=== PATIENT | female | born 1990 | race American Indian/Alaskan Native ===

== ENCOUNTER 2019-03-11 11:11 | Outpatient (CLI) | payer BC, MEDICAID ==
[2019-03-11 11:36] VITALS: BP 118/61
[2019-03-11] MEDS ORDERED: LACTATED RINGERS 500 ML IV ONE (11:37)
[2019-03-11 13:10] LABS: Bacteria,Urine 1+ /HPF (Negative); Bilirubin,Urine NEG (Negative); Blood,Urine NEG (Negative); Color,Urine Yellow (Yellow); Mucus,Urine FEW /HPF; Protein,Urine <15 mg/dL mg/dL (Negative); Urobilinogen,Urine < 2.0 mg/dL (<2.0)
== END 2019-03-11 13:35 | disposition home or self-care (01) ==
LOC: TRG 11:11
PROVIDERS: ATTEND Obstetrics & Gynecology
DX: O47.02 False labor before 37 completed weeks of gestation, second trimester (principal); Z3A.26 26 weeks gestation of pregnancy
CPT/HCPCS: 81001

== ENCOUNTER 2019-03-31 12:11 | Outpatient (CLI) | payer MEDICAID ==
[2019-03-31] MEDS ORDERED: LACTATED RINGERS 1,000 ML IV ONE (15:09)
--- NOTE | 2019-03-31 15:59 | Ultrasound Report ---
PROCEDURE: US OB LIMITED TECHNIQUE: Real-time limited sonographic examination was performed for evaluation of the placenta fo r each fetus with image documentation (1 or more fetuses). HISTORY: Placental location and integrity COMPARISONS: None . FINDINGS: FETUS IUP: Single living intrauterine . Position: Cephalic . Placental position: Anterior, without previa . Sonographic appearance of the placenta is unremarkabl e. A few small nonspecific placental sonolucencies are present. Heart rate and rhythm: 150 BPM, Regular . IMPRESSION: Sonographic appearance of the placenta is unremarkable. This document is electronically signed by Marivel De La O MD., Mar 31 2019 03:57:41 PM ET
[2019-03-31 16:15] LABS: Bacteria,Urine 1+ /HPF (Negative); Bilirubin,Urine NEG (Negative); Blood,Urine NEG (Negative); Color,Urine Yellow (Yellow); Mucus,Urine 3+ /HPF; Protein,Urine <15 mg/dL mg/dL (Negative); Urobilinogen,Urine < 2.0 mg/dL (<2.0)
[2019-03-31] MEDS ORDERED: BRETHINE SUB-Q ONE (17:00)
[2019-03-31] MEDS ORDERED: ROCEPHIN/NS 1 GM/50 ML 1 GM/50 ML BAG IV SCH (17:00)
[2019-03-31] MEDS ORDERED: PROCARDIA*For Tocolysis only PO ONE (19:00)
[2019-03-31 19:17] VITALS: BP 121/68
--- NOTE | 2019-03-31 19:25 | Progress Note ---
Assessment and Plan A: at 29 weeks, 4 days gestation. contractions, resolved with IV hydration and SQ Brethine. FFN negative. Not in labor. P: Consulted with Dr. Strange regarding this patient and all of the above (history, exam, lab findings, pt. complaints). Dr. Strange states to discharge patient home with Rx for Procardia 10 mg po TID. Discussed this plan with patient and her significant other. Rx Procardia 10 mg, #90, 1 po TID, 0 RF called to [facility] and left on voicemail. Advised patient to rest and avoid intercourse and drink plenty of water. Signs and symptoms of labor discussed with patient. Advised patient to return right away if contractions return or if she has any other signs or symptoms. Advised pt. to perform daily movement counting. Advised patient to keep her scheduled appointment at [facility] in 3 days. Warning signs discussed with patient. Subjective - Subjective Date of service: 03/31/19 Principal diagnosis: at 29 4/7 weeks, contractions Interval history: 28 year old presents at 29 weeks, 4 days gestation complaing of intermittent contractions mostly at night. Patient denies leaking of fluid, vaginal bleeding, vaginal discharge, or urinary symptoms. She reports lower back pain; she denies flank pain, fever, chills, or malaise. Patient denies falls or abdominal trauma. Patient reports active movement. Patient states she receives care at [facility]. She states she has a follow up appointment there in 3 days. Patient denies any complications with the and states she is not taking any medications except vitamins. Patient reports she frequently has the pelvic cramping and lower back pain at night and it resolves spontaneously. Has been happening on and off for several weeks. Patient reports: movement normal, contractions, no new complaints, no loss of fluid, no vaginal bleeding Objective - Vital Signs Vital Signs: Vital Signs - 12hr 03/31/19 03/31/19 03/31/19 12:55 13:10 13:25 Pulse Rate 90 86 86 Blood Pressure 118/62 112/59 112/56 03/31/19 03/31/19 03/31/19 13:40 13:55 14:10 Pulse Rate 83 85 94 H Blood Pressure 118/56 101/52 104/52 03/31/19 03/31/19 03/31/19 14:26 14:40 14:57 Pulse Rate 75 78 82 Blood Pressure 126/57 113/57 105/54 03/31/19 03/31/19 03/31/19 15:58 18:11 19:16 Pulse Rate 74 96 H 97 H Blood Pressure 116/59 122/58 121/68 - Exam Narrative Exam: fibronectin negative. Irregular mild contractions which resolved with IV hydration and SQ Brethine. Cervix unchanged after several hours (closed, thick, high, posterior). Category 1 heart rate tracing. No leaking of water or vaginal bleeding seen. Negative CVAT bilaterally. Per lead sharepoint developer, fetus is cephalic and there is no sign of previa or abruption on US. Abdomen palpates soft. IV hydration and SQ Brethine totally resolved the cramping and back pain per patient report. IV Rocephin 1 gram was also given. Abdomen: Present: normal appearance, soft. Absent: distention, tenderness, guarding, rigidity Uterus: Present: normal, fundal height above umbilicus. Absent: tenderness FHR: category 1 Uterine Contraction Monitor Mode: External Cervical Dilatation: 0 (closed, thick, posterior, ballottable) Uterine Contraction Pattern: Irregular Uterine Contraction Intensity: Mild Extremities: normal - Labs Labs: Abnormal Labs 03/31/19 15:57 U Epithel Cells (Auto) 19.0 H Laboratory Results - last 24 hr 03/31/19 03/31/19 14:22 15:57 Urine Color Yellow Urine Turbidity Slightly-cloudy Urine pH 6.0 Ur Specific [place] 1.021 Urine Protein <15 mg/dl Urine Glucose (UA) Neg Urine Ketones Neg Urine Blood Neg Urine Nitrite Neg Urine Bilirubin Neg Urine Urobilinogen < 2.0 Ur Leukocyte Esterase Tr Urine WBC (Auto) 4.0 Urine RBC (Auto) 4.0 U Epithel Cells (Auto) 19.0 H Urine Bacteria (Auto) 1+ Urine Mucus 3+ Fibronectin Negative
== END 2019-03-31 19:39 | disposition home or self-care (01) ==
LOC: TRG 12:11
PROVIDERS: ATTEND Obstetrics & Gynecology
DX: O26.893 Other specified pregnancy related conditions, third trimester (principal); R11.0 Nausea; M54.9 Dorsalgia, unspecified; R60.9 Edema, unspecified; Z3A.29 29 weeks gestation of pregnancy
CPT/HCPCS: 36415; 59020; 59025; 76815; 81001; 82731; 96361; 96365; 96366; 96372; J0696; J3105; J7120; 96360

== ENCOUNTER 2019-04-01 10:46 | Observation (INO) | payer MEDICAID ==
[2019-04-01] MEDS ORDERED: LACTATED RINGERS 500 ML IV ONE (12:01)
[2019-04-01] MEDS ORDERED: LACTATED RINGERS 1,000 ML IV SCH ×2 (13:00→17:00)
[2019-04-01 13:34] LABS: Bacteria,Urine 1+ /HPF (Negative); Bilirubin,Urine NEG (Negative); Blood,Urine NEG (Negative); Color,Urine Yellow (Yellow); Mucus,Urine 1+ /HPF; Protein,Urine <15 mg/dL mg/dL (Negative); Urobilinogen,Urine < 2.0 mg/dL (<2.0)
[2019-04-01] MEDS ORDERED: BRETHINE SUB-Q PRN (15:43)
[2019-04-01] MEDS ORDERED: COLACE PO PRN (16:36)
[2019-04-01] MEDS ORDERED: MAGNESIUM SULFATE 4GM/100ML 4 GM/100 ML BAG IV ONE (16:41)
--- NOTE | 2019-04-01 16:50 | History and Physical Report ---
History of Present Illness Date of examination: 04/01/19 Date of admission: 04/01/19 Chief complaint: SIUP at 29 weeks and 5 days gestation with contractions. History of present illness: Patient is a 28 year old , EDC 06/12/19 at 29 weeks, 5 days gestation who presented to the triage complaining of having contractions and low back pain since yesterday. She denies leaking of fluid, vaginal bleeding, urinary symptoms, flank pain, fever, chills, or malaise. Patient denies falls or abdominal trauma. She reports active movement. She was seen here yesterday evening for the same problems and was treated with IV fluid, rocephin IV, procardia Q6 hrs. She was given a prescription to take with her. She says that she has been taking the procardia but it is not helping. In triage, her contractions are every 2 mins. Speculum exam: + greenish discharge, cervix closed/long. No fluid pooling. Patient receives care at [facility]. Her records are not available. She denies any complications with the . She had 2 previous vaginal deliveries. No history of labor. Past History Past Surgical History: no surgical history Family/Genetic History: none Social history: no significant social history - Obstetrical History Expected Date of Delivery: 06/12/19 Actual Gestation: 29 Week(s) 5 Day(s) : 4 Para: 2 Number of Living Children: 2 Medications and Allergies Allergies Allergy/AdvReac Type Severity Reaction Status Date / Time No Known Allergies Allergy Verified 10/01/15 10:40 Home Medications Medication Instructions Recorded Confirmed Last Taken Type Vit-Fe Fumar-FA [ 1 tab PO QDAY 10/01/15 10/07/15 10/03/15 History Vitamin] 1 tab Active Meds: Active Medications Acetaminophen (Tylenol) 650 mg PO Q4H PRN PRN Reason: Pain MILD(1-3)/Fever >100.5/MULLEN Betamethasone Acet/Betameth SodPhos (Celestone Soluspan) 12 mg IM Q24HR CRISTINA Stop: 04/02/19 10:01 Docusate Sodium (Colace) 100 mg PO Q12H PRN PRN Reason: Constipation Lactated Ringer's (Lactated Ringers) 1,000 mls @ 125 mls/hr IV DIRECT CRISTINA Last Admin: 04/01/19 16:06 Dose: 125 mls/hr Documented by: Lactated Ringer's (Lactated Ringers) 1,000 mls @ 125 mls/hr IV DIRECT CRISTINA Ampicillin Sodium (Ampicillin/Ns 1 Gm/50 Ml) 1 gm in 50 mls @ 100 mls/hr IV Q4HR CRISTINA; Protocol Magnesium Sulfate (Magnesium Sulfate 4gm/100ml) 4 gm in 100 mls @ 300 mls/hr IV ONCE ONE Stop: 04/01/19 17:00 Magnesium Sulfate (Magnesium Sulfate 40gm/1000ml) 40 gm in 1,000 mls @ 50 mls/hr IV DIRECT CRISTINA Metronidazole (Flagyl) 375 mg PO Q12HR RCISTINA; Protocol Multivitamins/Iron/Calcium ( Vitamin) 1 each PO QDAY CRISTINA - Vital Signs Vital signs: Vital Signs Temp Resp 98.2 F 18 04/01/19 11:28 04/01/19 11:28 Temp Pulse Resp BP Pulse Ox 98.2 F 63 18 114/66 99 04/01/19 11:28 04/01/19 16:10 04/01/19 11:28 04/01/19 15:53 04/01/19 16:10 - Physical Exam Cardiovascular: Normal S1, Normal S2 Lungs: Positive: Clear to auscultation Vulva: both: normal Adnexa: both: normal Deep Tendon Reflex Grade: Normal +2 - Obstetrical FHR: category 1 Uterine Contraction Monitor Mode: External Cervical Dilatation: 0 Cervical Effacement Percentage: 0 station: -3 Uterine Contraction Pattern: Regular Uterine Contraction Intensity: Strong/Firm Results Abnormal lab results 04/01/19 Range/Units 12:44 Urine WBC (Auto) 11.0 H (0.0-6.0) /HPF U Epithel Cells (Auto) 38.0 H (0-13.0) /HPF All other labs normal. Assessment and Plan - Patient Problems (1) 29 weeks gestation of Current Visit: Yes Status: Acute (2) labor Current Visit: Yes Status: Acute Plan to address problem: Admit to labor floor. IV hydration. Routine labs. Genital cx done. and toco monitoring. Celestone for FLM. Magnesium sulfate for tocolysis and neuroprotection. IV antibiotics for GBS prophylaxis. Sonogram for EFW, BRIDGETTE, presentation. Urine UDS. (3) Bacterial vaginosis Current Visit: Yes Status: Acute Plan to address problem: Genital Cx done. PO Flagyl ordered.
[2019-04-01] MEDS ORDERED: MAGNESIUM SULFATE 40GM/1000ML 40 GM/1,000 ML BAG IV SCH (17:00)
[2019-04-01] MEDS: CELESTONE SOLUSPAN IM SCH (17:16)
[2019-04-01 17:27] LABS: Hematocrit 33.8 % (30.3-42.9); Hemoglobin 11.3 gm/dl (10.1-14.3); Mean Corpuscular HGB Conc 33 % (30-34); Mean Corpuscular Volume 94 fl (79-97); Red Cell Distribution Width 14.3 % (13.2-15.2)
[2019-04-01 17:33] LABS: Platelet Count 170 K/mm3 (140-440)
--- NOTE | 2019-04-01 18:19 | Ultrasound Report ---
PROCEDURE: US OB BPP WO NON-STRESS HISTORY: estimated weight FINDINGS: Real-time ultrasound of the gravid uterus was performed. Biophysical profile is 8 of 8. The cardiac activity is present at 139 bpm. Amniotic fluid index was 8.6 cm which is within normal limits. IMPRESSION: Biophysical profile 8 of 8 This document is electronically signed by Jose Silverio MD., Apr 01 2019 06:17:25 PM ET
--- NOTE | 2019-04-01 18:21 | Ultrasound Report ---
PROCEDURE: US OB FOLLOW UP HISTORY: weight FINDINGS: Real-time ultrasound the pelvis was performed by transabdominal technique. There is a single live intrauterine gestation in cephalic lie. Biparietal diameter was 7.4 cm which corresponds to 29 weeks and 6 days. Head circumference was 27.3 cm corresponds to 29 weeks and 5 days. Abdominal circumference was 25.2 cm which corresponds to 29 weeks and 3 days. Femur length is 5.5 cm which corresponds to 29 weeks and 0 days. cardiac activity is present at 156 bpm. Amniotic fluid index was 8.6 cm which is within normal limits. Cervical length is 4.5 cm. Estimated weight was 1377 g. IMPRESSION: Single live intrauterine gestation at approximately 29 weeks and 4 days. Estimated date o f delivery is June 13, 2019. This document is electronically signed by Jose Silverio MD., Apr 01 2019 06:19:31 PM ET
[2019-04-01 18:47] LABS: Band Neutrophils # (Manual) 0.5 K/mm3; Basophils % (Manual) 0 % (0.0-1.8); Total Cells Counted 100
[2019-04-01 18:49] LABS: Giant Platelets Few; Ovalocytes Few; Platelet Estimate Consistent w Auto
[2019-04-01] MEDS: AMPICILLIN/NS 1 GM/50 ML 1 GM/50 ML BAG IV SCH (20:38)
[2019-04-01] MEDS: FLAGYL PO SCH (21:56)
[2019-04-02] MEDS: AMPICILLIN/NS 1 GM/50 ML 1 GM/50 ML BAG IV SCH ×5 (01:29→17:56)
[2019-04-02] MEDS: TYLENOL PO PRN ×2 (08:18→16:15)
--- NOTE | 2019-04-02 09:33 | Progress Note ---
Objective - Vital Signs Vital Signs: Vital Signs - 12hr 04/01/19 04/01/19 04/01/19 21:37 21:42 21:47 Pulse Rate 83 87 98 H Respiratory Rate Blood Pressure O2 Sat by Pulse 98 99 98 Oximetry 04/01/19 04/01/19 04/01/19 21:52 21:57 22:02 Pulse Rate 97 H 95 H 121 H Respiratory Rate Blood Pressure 118/64 O2 Sat by Pulse 98 98 98 Oximetry 04/01/19 04/01/19 04/01/19 22:05 22:08 22:13 Pulse Rate 113 H 109 H Respiratory 16 Rate Blood Pressure O2 Sat by Pulse 99 98 Oximetry 04/01/19 04/01/19 04/01/19 22:18 22:23 22:24 Pulse Rate 99 H 100 H 95 H Respiratory Rate Blood Pressure 107/57 O2 Sat by Pulse 98 97 Oximetry 04/01/19 04/01/19 04/01/19 22:28 22:33 22:38 Pulse Rate 91 H 85 98 H Respiratory Rate Blood Pressure O2 Sat by Pulse 97 97 97 Oximetry 04/01/19 04/01/19 04/01/19 22:43 22:48 22:52 Pulse Rate 93 H 92 H 110 H Respiratory Rate Blood Pressure 126/57 O2 Sat by Pulse 97 98 Oximetry 04/01/19 04/01/19 04/01/19 22:53 22:58 23:04 Pulse Rate 105 H 88 93 H Respiratory Rate Blood Pressure O2 Sat by Pulse 97 98 97 Oximetry 04/01/19 04/01/19 04/01/19 23:09 23:14 23:19 Pulse Rate 91 H 95 H 98 H Respiratory Rate Blood Pressure O2 Sat by Pulse 98 97 96 Oximetry 04/01/19 04/01/19 04/01/19 23:22 23:24 23:29 Pulse Rate 112 H 94 H 101 H Respiratory Rate Blood Pressure 137/61 O2 Sat by Pulse 98 97 Oximetry 04/01/19 04/01/19 04/01/19 23:33 23:39 23:44 Pulse Rate 100 H 97 H 97 H Respiratory Rate Blood Pressure O2 Sat by Pulse 97 96 97 Oximetry 04/01/19 04/01/19 04/01/19 23:49 23:52 23:54 Pulse Rate 96 H 112 H 96 H Respiratory Rate Blood Pressure 118/58 O2 Sat by Pulse 97 98 Oximetry 04/01/19 04/02/19 04/02/19 23:59 00:04 00:09 Pulse Rate 99 H 92 H 96 H Respiratory Rate Blood Pressure O2 Sat by Pulse 97 97 97 Oximetry 04/02/19 04/02/19 04/02/19 00:14 00:19 00:24 Pulse Rate 91 H 94 H 109 H Respiratory Rate Blood Pressure O2 Sat by Pulse 97 97 98 Oximetry 04/02/19 04/02/19 04/02/19 00:29 00:34 00:39 Pulse Rate 109 H 91 H 88 Respiratory Rate Blood Pressure O2 Sat by Pulse 97 98 98 Oximetry 04/02/19 04/02/19 04/02/19 00:44 00:49 00:52 Pulse Rate 92 H 90 92 H Respiratory Rate Blood Pressure 124/56 O2 Sat by Pulse 98 98 Oximetry 04/02/19 04/02/19 04/02/19 00:54 00:59 01:00 Pulse Rate 89 91 H Respiratory 18 Rate Blood Pressure O2 Sat by Pulse 98 97 Oximetry 04/02/19 04/02/19 04/02/19 01:04 01:09 01:14 Pulse Rate 92 H 96 H 87 Respiratory Rate Blood Pressure O2 Sat by Pulse 98 97 98 Oximetry 04/02/19 04/02/19 04/02/19 01:19 01:23 01:24 Pulse Rate 88 90 90 Respiratory Rate Blood Pressure 109/55 O2 Sat by Pulse 98 98 Oximetry 04/02/19 04/02/19 04/02/19 01:29 01:34 01:39 Pulse Rate 87 86 96 H Respiratory Rate Blood Pressure O2 Sat by Pulse 97 98 98 Oximetry 04/02/19 04/02/19 04/02/19 01:44 01:49 01:53 Pulse Rate 91 H 87 96 H Respiratory Rate Blood Pressure 112/57 O2 Sat by Pulse 98 99 Oximetry 04/02/19 04/02/19 04/02/19 01:54 01:59 02:04 Pulse Rate 89 89 86 Respiratory Rate Blood Pressure O2 Sat by Pulse 98 98 98 Oximetry 04/02/19 04/02/19 04/02/19 02:09 02:14 02:19 Pulse Rate 93 H 88 85 Respiratory Rate Blood Pressure O2 Sat by Pulse 98 98 98 Oximetry 04/02/19 04/02/1919 02:23 02:24 02:29 Pulse Rate 86 87 88 Respiratory Rate Blood Pressure 108/57 O2 Sat by Pulse 98 97 Oximetry 04/02/19 04/02/19 04/02/19 02:34 02:39 02:44 Pulse Rate 101 H 77 79 Respiratory Rate Blood Pressure O2 Sat by Pulse 98 98 98 Oximetry 04/02/19 04/02/19 04/02/19 02:49 02:52 02:54 Pulse Rate 84 77 82 Respiratory Rate Blood Pressure 101/54 O2 Sat by Pulse 97 97 Oximetry 04/02/19 04/02/19 04/02/19 02:59 03:04 03:09 Pulse Rate 85 76 82 Respiratory Rate Blood Pressure O2 Sat by Pulse 98 98 98 Oximetry 04/02/19 04/02/19 04/02/19 03:14 03:19 03:22 Pulse Rate 82 83 78 Respiratory Rate Blood Pressure 102/58 O2 Sat by Pulse 98 98 Oximetry 04/02/19 04/02/19 04/02/19 03:24 03:29 03:34 Pulse Rate 83 84 75 Respiratory Rate Blood Pressure O2 Sat by Pulse 98 97 98 Oximetry 04/02/19 04/02/19 04/02/19 03:39 03:44 03:49 Pulse Rate 87 93 H 85 Respiratory Rate Blood Pressure O2 Sat by Pulse 98 96 97 Oximetry 04/02/19 04/02/19 04/02/19 03:54 03:59 04:04 Pulse Rate 86 85 89 Respiratory Rate Blood Pressure 95/50 O2 Sat by Pulse 97 98 99 Oximetry 04/02/19 04/02/19 04/02/19 04:09 04:14 04:19 Pulse Rate 94 H 79 73 Respiratory Rate Blood Pressure O2 Sat by Pulse 99 99 98 Oximetry 04/02/19 04/02/19 04/02/19 04:22 04:24 04:29 Pulse Rate 77 86 79 Respiratory Rate Blood Pressure 96/51 O2 Sat by Pulse 98 99 Oximetry 04/02/19 04/02/19 04/02/19 04:34 04:39 04:44 Pulse Rate 76 79 84 Respiratory Rate Blood Pressure O2 Sat by Pulse 100 99 100 Oximetry 04/02/19 04/02/19 04/02/19 04:49 04:52 04:54 Pulse Rate 82 89 86 Respiratory Rate Blood Pressure 121/56 O2 Sat by Pulse 100 100 Oximetry 04/02/19 04/02/19 04/02/19 04:59 05:00 05:04 Pulse Rate 83 83 Respiratory 18 Rate Blood Pressure O2 Sat by Pulse 98 100 Oximetry 04/02/19 04/02/19 04/02/19 05:09 05:14 05:19 Pulse Rate 78 79 82 Respiratory Rate Blood Pressure O2 Sat by Pulse 99 100 100 Oximetry 04/02/19 04/02/19 04/02/19 05:22 05:24 05:29 Pulse Rate 79 82 83 Respiratory Rate Blood Pressure 103/52 O2 Sat by Pulse 99 99 Oximetry 04/02/19 04/02/19 04/02/19 05:34 05:39 05:44 Pulse Rate 88 85 85 Respiratory Rate Blood Pressure O2 Sat by Pulse 99 99 99 Oximetry 04/02/19 04/02/19 04/02/19 05:49 05:52 05:54 Pulse Rate 85 88 89 Respiratory Rate Blood Pressure 108/55 O2 Sat by Pulse 99 99 Oximetry 04/02/19 04/02/19 04/02/19 05:59 06:04 06:09 Pulse Rate 90 86 86 Respiratory Rate Blood Pressure O2 Sat by Pulse 98 97 97 Oximetry 04/02/19 04/02/19 04/02/19 06:14 06:16 06:19 Pulse Rate 96 H 85 92 H Respiratory Rate Blood Pressure O2 Sat by Pulse 98 91 98 Oximetry 04/02/19 04/02/19 04/02/19 06:23 06:24 06:29 Pulse Rate 100 H 94 H 94 H Respiratory Rate Blood Pressure 109/60 O2 Sat by Pulse 99 99 Oximetry 04/02/19 04/02/19 04/02/19 06:34 06:39 06:44 Pulse Rate 96 H 93 H 88 Respiratory Rate Blood Pressure O2 Sat by Pulse 100 100 100 Oximetry 04/02/19 04/02/19 04/02/19 06:49 06:52 06:54 Pulse Rate 95 H 92 H 93 H Respiratory Rate Blood Pressure 113/56 O2 Sat by Pulse 100 100 Oximetry 04/02/19 04/02/19 04/02/19 06:59 07:04 07:09 Pulse Rate 87 88 103 H Respiratory Rate Blood Pressure O2 Sat by Pulse 98 97 99 Oximetry 04/02/19 04/02/1919 07:12 07:14 07:19 Pulse Rate 55 L 89 101 H Respiratory Rate Blood Pressure O2 Sat by Pulse 93 98 100 Oximetry 04/02/19 04/02/19 04/02/19 07:22 07:24 07:29 Pulse Rate 104 H 85 87 Respiratory Rate Blood Pressure 106/62 O2 Sat by Pulse 99 99 Oximetry 04/02/19 04/02/19 04/02/19 07:34 07:39 07:44 Pulse Rate 92 H 84 86 Respiratory Rate Blood Pressure O2 Sat by Pulse 100 99 100 Oximetry 04/02/19 04/02/19 04/02/19 07:48 07:49 07:52 Pulse Rate 106 H 113 H 89 Respiratory Rate Blood Pressure 103/58 O2 Sat by Pulse 82 L 99 Oximetry 04/02/19 04/02/19 04/02/19 07:54 07:59 08:04 Pulse Rate 82 96 H 103 H Respiratory Rate Blood Pressure O2 Sat by Pulse 99 99 99 Oximetry 04/02/19 04/02/19 04/02/19 08:09 08:14 08:19 Pulse Rate 98 H 96 H 102 H Respiratory Rate Blood Pressure O2 Sat by Pulse 98 98 97 Oximetry 04/02/19 04/02/19 04/02/19 08:23 08:24 08:29 Pulse Rate 102 H 103 H 107 H Respiratory Rate Blood Pressure 124/59 O2 Sat by Pulse 99 99 Oximetry 04/02/19 04/02/19 04/02/19 08:34 08:39 08:44 Pulse Rate 103 H 110 H 104 H Respiratory Rate Blood Pressure O2 Sat by Pulse 100 99 98 Oximetry 04/02/19 04/02/19 04/02/19 08:49 08:52 08:54 Pulse Rate 99 H 101 H 105 H Respiratory Rate Blood Pressure 114/56 O2 Sat by Pulse 99 98 Oximetry 04/02/19 04/02/19 04/02/19 08:59 09:04 09:09 Pulse Rate 96 H 98 H 98 H Respiratory Rate Blood Pressure O2 Sat by Pulse 98 98 98 Oximetry 04/02/19 04/02/19 04/02/19 09:14 09:19 09:22 Pulse Rate 95 H 93 H 89 Respiratory Rate Blood Pressure 108/58 O2 Sat by Pulse 98 98 Oximetry 04/02/19 04/02/19 09:24 09:29 Pulse Rate 92 H 95 H Respiratory Rate Blood Pressure O2 Sat by Pulse 98 98 Oximetry - Labs Labs: Abnormal Labs 04/01/19 04/01/19 04/02/19 12:44 14:25 00:27 RBC 3.60 L Monocytes % (Manual) 9.0 H Magnesium 4.70 H Urine WBC (Auto) 11.0 H U Epithel Cells (Auto) 38.0 H 04/02/19 06:28 RBC Monocytes % (Manual) Magnesium 5.80 H Urine WBC (Auto) U Epithel Cells (Auto) Laboratory Results - last 24 hr 04/01/19 04/01/19 04/01/19 12:44 14:25 17:26 WBC 7.4 RBC 3.60 L Hgb 11.3 Hct 33.8 MCV 94 MCH 31 MCHC 33 RDW 14.3 Plt Count 170 Add Manual Diff Complete Total Counted 100 Seg Neuts % (Manual) 61.0 Band Neutrophils % 7.0 Lymphocytes % (Manual) 22.0 Reactive Lymphs % (Man) 0 Monocytes % (Manual) 9.0 H Eosinophils % (Manual) 1.0 Basophils % (Manual) 0 Metamyelocytes % 0 Myelocytes % 0 Promyelocytes % 0 Blast Cells % 0 Nucleated RBC % Not Reportable Seg Neutrophils # Man 4.5 Band Neutrophils # 0.5 Lymphocytes # (Manual) 1.6 Abs React Lymphs (Man) 0.0 Monocytes # (Manual) 0.7 Eosinophils # (Manual) 0.1 Basophils # (Manual) 0.0 Metamyelocytes # 0.0 Myelocytes # 0.0 Promyelocytes # 0.0 Blast Cells # 0.0 WBC Morphology Not Reportable Hypersegmented Neuts Not Reportable Hyposegmented Neuts Not Reportable Hypogranular Neuts Not Reportable Smudge Cells Not Reportable Toxic Granulation Not Reportable Toxic Vacuolation Not Reportable Dohle Bodies Not Reportable Pelger-Huet Anomaly Not Reportable Rosina Rods Not Reportable Platelet Estimate Consistent w auto Clumped Platelets Not Reportable Plt Clumps, EDTA Not Reportable Large Platelets Not Reportable Giant Platelets Few Platelet Satelliting Not Reportable Plt Morphology Comment Not Reportable RBC Morphology Not Reportable Dimorphic RBCs Not Reportable Polychromasia Not Reportable Hypochromasia Not Reportable Poikilocytosis Not Reportable Anisocytosis Not Reportable Microcytosis Not Reportable Macrocytosis Not Reportable Spherocytes Not Reportable Pappenheimer Bodies Not Reportable Sickle Cells Not Reportable Target Cells Not Reportable Tear Drop Cells Not Reportable Ovalocytes Few Helmet Cells Not Reportable Coley-Devol Bodies Not Reportable [place] Rings Not Reportable Vidya Cells Not Reportable Bite Cells Not Reportable Crenated Cell Not Reportable Elliptocytes Not Reportable Acanthocytes (Spur) Not Reportable Rouleaux Not Reportable Hemoglobin C Crystals Not Reportable Schistocytes Not Reportable Malaria parasites Not Reportable Cm Bodies Not Reportable Hem Pathologist Commnt No Magnesium Urine Color Yellow Urine Turbidity Slightly-cloudy Urine pH 7.0 Ur Specific [place] 1.018 Urine Protein <15 mg/dl Urine Glucose (UA) Neg Urine Ketones Neg Urine Blood Neg Urine Nitrite Neg Urine Bilirubin Neg Urine Urobilinogen < 2.0 Ur Leukocyte Esterase Lg Urine WBC (Auto) 11.0 H Urine RBC (Auto) 4.0 U Epithel Cells (Auto) 38.0 H Urine Bacteria (Auto) 1+ Urine Mucus 1+ Ur Yeast w Hyphae Few Blood Type O POSITIVE Antibody Screen Negative 04/02/19 04/02/19 00:27 06:28 WBC RBC Hgb Hct MCV MCH MCHC RDW Plt Count Add Manual Diff Total Counted Seg Neuts % (Manual) Band Neutrophils % Lymphocytes % (Manual) Reactive Lymphs % (Man) Monocytes % (Manual) Eosinophils % (Manual) Basophils % (Manual) Metamyelocytes % Myelocytes % Promyelocytes % Blast Cells % Nucleated RBC % Seg Neutrophils # Man Band Neutrophils # Lymphocytes # (Manual) Abs React Lymphs (Man) Monocytes # (Manual) Eosinophils # (Manual) Basophils # (Manual) Metamyelocytes # Myelocytes # Promyelocytes # Blast Cells # WBC Morphology Hypersegmented Neuts Hyposegmented Neuts Hypogranular Neuts Smudge Cells Toxic Granulation Toxic Vacuolation Dohle Bodies Pelger-Huet Anomaly Rosina Rods Platelet Estimate Clumped Platelets Plt Clumps, EDTA Large Platelets Giant Platelets Platelet Satelliting Plt Morphology Comment RBC Morphology Dimorphic RBCs Polychromasia Hypochromasia Poikilocytosis Anisocytosis Microcytosis Macrocytosis Spherocytes Pappenheimer Bodies Sickle Cells Target Cells Tear Drop Cells Ovalocytes Helmet Cells Coley-Devol Bodies [place] Rings [place] Cells Bite Cells Crenated Cell Elliptocytes Acanthocytes (Spur) Rouleaux Hemoglobin C Crystals Schistocytes Malaria parasites Cm Bodies Hem Pathologist Commnt Magnesium 4.70 H 5.80 H Urine Color Urine Turbidity Urine pH Ur Specific [place] Urine Protein Urine Glucose (UA) Urine Ketones Urine Blood Urine Nitrite Urine Bilirubin Urine Urobilinogen Ur Leukocyte Esterase Urine WBC (Auto) Urine RBC (Auto) U Epithel Cells (Auto) Urine Bacteria (Auto) Urine Mucus Ur Yeast w Hyphae Blood Type Antibody Screen
[2019-04-02] MEDS ORDERED: PRENATAL VITAMIN PO SCH (10:00)
[2019-04-02] MEDS: FLAGYL PO SCH (12:26)
[2019-04-02] MEDS ORDERED: CELESTONE SOLUSPAN IM ONE (17:51)
[2019-04-02] MEDS: CELESTONE SOLUSPAN IM SCH (17:58)
[2019-04-02 18:27] VITALS: BP 102/56
== END 2019-04-02 19:00 | disposition home or self-care (01) ==
LOC: TRG 10:46 → LD 18:25
PROVIDERS: ADMIT Obstetrics & Gynecology; ATTEND Obstetrics & Gynecology
DX: O23.593 Infection of other part of genital tract in pregnancy, third trimester (principal); O60.03 Preterm labor without delivery, third trimester; Z3A.29 29 weeks gestation of pregnancy
CPT/HCPCS: 36415; 59025; 76816; 76819; 81001; 83735; 85007; 85025; 86850; 86900; 86901; 87116; 87591; 96365; 96366; 96368; 96372; G0378; J0290; J0702; J3105; J3475; J7120

== ENCOUNTER 2019-05-01 17:59 | Outpatient (CLI) | payer MEDICAID ==
[2019-05-01] MEDS ORDERED: LACTATED RINGERS 1,000 ML IV ONE (19:42)
[2019-05-01 19:53] LABS: Hematocrit 31.5 % (30.3-42.9); Hemoglobin 10.8 gm/dl (10.1-14.3); Mean Corpuscular HGB Conc 34 % (30-34); Mean Corpuscular Volume 91 fl (79-97); Platelet Count 156 K/mm3 (140-440); Red Blood Count 3.47 M/mm3 (3.65-5.03); Red Cell Distribution Width 13.8 % (13.2-15.2)
[2019-05-01 20:24] LABS: Alanine Aminotransferase 9 units/L (7-56); Uric Acid 4.2 mg/dL (3.5-7.6)
[2019-05-01 20:25] LABS: Bacteria,Urine 1+ /HPF (Negative); Bilirubin,Urine NEG (Negative); Blood,Urine NEG (Negative); Calcium Oxalate Crystals,Urine FEW; Color,Urine Yellow (Yellow); Mucus,Urine 2+ /HPF; Protein,Urine <15 mg/dL mg/dL (Negative)
[2019-05-01 21:09] VITALS: BP 121/58
[2019-05-01] MEDS ORDERED: PERCOCET 5/325 PO ONE (21:32)
== END 2019-05-01 21:52 | disposition home or self-care (01) ==
LOC: TRG 17:59
PROVIDERS: ATTEND Obstetrics & Gynecology
DX: O26.893 Other specified pregnancy related conditions, third trimester (principal); R51 Headache; O47.03 False labor before 37 completed weeks of gestation, third trimester; Z3A.34 34 weeks gestation of pregnancy
CPT/HCPCS: 36415; 59025; 81001; 82565; 83615; 84450; 84460; 84550; 85027; 96360

== ENCOUNTER 2019-05-06 21:27 | Outpatient (CLI) | payer MEDICAID ==
[2019-05-06] MEDS ORDERED: LACTATED RINGERS 1,000 ML IV ONE ×2 (23:34→23:48)
[2019-05-06] MEDS ORDERED: STADOL IV ONE (23:48)
[2019-05-07 00:37] LABS: Bilirubin,Urine NEG (Negative); Blood,Urine NEG (Negative); Color,Urine Yellow (Yellow); Mucus,Urine 2+ /HPF; Protein,Urine <15 mg/dL mg/dL (Negative); Urobilinogen,Urine < 2.0 mg/dL (<2.0)
[2019-05-07 02:19] VITALS: BP 126/65
== END 2019-05-07 03:10 | disposition home or self-care (01) ==
LOC: TRG 21:27
PROVIDERS: ATTEND Obstetrics & Gynecology
DX: O62.9 Abnormality of forces of labor, unspecified (principal); O26.893 Other specified pregnancy related conditions, third trimester; H53.8 Other visual disturbances; R10.2 Pelvic and perineal pain; R11.0 Nausea; Z3A.34 34 weeks gestation of pregnancy
CPT/HCPCS: 59025; 81001; 96361; 96374; J0595; J7120; 96360

== ENCOUNTER 2019-05-07 13:27 | Emergency (ER) | payer MEDICAID ==
[2019-05-07] MEDS ORDERED: LACTATED RINGERS 500 ML IV ONE (13:51)
[2019-05-07 14:56] LABS: Bacteria,Urine 1+ /HPF (Negative); Bilirubin,Urine NEG (Negative); Blood,Urine NEG (Negative); Color,Urine Yellow (Yellow); Mucus,Urine 2+ /HPF; Protein,Urine <15 mg/dL mg/dL (Negative); Urobilinogen,Urine < 2.0 mg/dL (<2.0)
[2019-05-07 15:03] LABS: Amphetamine Screen,Urine PRESUMPTIVE NEGATIVE; Benzodiazepines Screen,Urine PRESUMPTIVE NEGATIVE; Cannabinoid Screen,Urine PRESUMPTIVE NEGATIVE; Cocaine Screen,Urine PRESUMPTIVE NEGATIVE; Methadone Screen,Urine PRESUMPTIVE NEGATIVE; Opiate Screen,Urine PRESUMPTIVE NEGATIVE
--- NOTE | 2019-05-07 18:26 | Event Note ---
ED Screening Note ED Screening Note: TO ER WITH CP P BEING EVALUATED BY L/D UA NORMAL This initial assessment/diagnostic orders/clinical plan/treatment(s) is/are subject to change based on patients health status, clinical progression and re- assessment by fellow clinical providers in the ED. Further treatment and workup at subsequent clinical providers discretion. Patient/guardian urged not to elope from the ED as their condition may be serious if not clinically assessed and managed. Initial orders include:
[2019-05-07 22:00] LABS: Basophils % (Auto) 0.4 % (0.0-1.8); Eosinophils % (Auto) 0.4 % (0.0-4.3); Hematocrit 32.8 % (30.3-42.9); Lymphocytes # (Auto) 1.5 K/mm3 (1.2-5.4); Lymphocytes % (Auto) 19.9 % (13.4-35.0); Mean Corpuscular HGB Conc 33 % (30-34); Mean Corpuscular Volume 91 fl (79-97); Monocytes % (Auto) 13.5 % (0.0-7.3); Platelet Count 174 K/mm3 (140-440); Red Blood Count 3.61 M/mm3 (3.65-5.03)
--- NOTE | 2019-05-07 22:07 | Emergency Department Report ---
ED Chest Pain HPI - General Chief Complaint: Chest Pain Time Seen by Provider: 05/07/19 18:25 Source: patient Mode of arrival: Ambulatory Limitations: No Limitations - History of Present Illness Initial Comments: 28-year-old female presents to the emergency department with complaint of some intermittent midsternal chest pain, shortness of breath, generalized weakness that has been going on since last night. The patient went to labor and delivery last night for some intermittent contractions she was having. She was given a dose of Stadol that she thinks she may have had a reaction to. Shortly after getting the Stadol the patient started having the above-mentioned symptoms, along with some dizziness. Patient says that she was sent home around 3 AM when she was improving. However she woke up this morning and the symptoms had returned so she came back in to be evaluated. She went to labor and delivery first and then was sent to the emergency department. She is currently 35 weeks . Her PROJECT COORDINATOR RN is Dr. Matt Angel. No recent travel. She denies any fever, back pain, nausea, vomiting, diaphoresis, lower extremity swelling. Severity scale (0 -10): 7 - Related Data Home Medications Medication Instructions Recorded Confirmed Last Taken Vit-Fe Fumar-FA [ 1 tab PO QDAY 10/01/15 04/02/19 03/31/19 Vitamin] NIFEdipine [Procardia] 1 tab PO DAILY 04/02/19 04/02/19 04/01/19 Allergies Allergy/AdvReac Type Severity Reaction Status Date / Time butorphanol [From Stadol] Allergy Shortness Verified 05/07/19 21:09 of Breath Heart Score - HEART Score History: Slightly suspicious EKG: Normal Age: < 45 Risk factors: No known risk factors Troponin: < normal limit HEART Score: 0 - Critical Actions Critical Actions: 0-3 pts:0.9-1.7%risk of adverse cardiac event.Candidate for discharge ED Review of Systems ROS: Stated complaint: Other details as noted in HPI Comment: All other systems reviewed and negative Constitutional: weakness. denies: chills, fever Eyes: denies: eye pain, vision change ENT: denies: ear pain, throat pain Respiratory: shortness of breath. denies: cough Cardiovascular: chest pain. denies: palpitations Gastrointestinal: abdominal pain. denies: vomiting Genitourinary: denies: dysuria, discharge Musculoskeletal: denies: back pain, arthralgia Skin: denies: rash, lesions Neurological: other (dizzy). denies: headache ED Past Medical Hx - Past Medical History Hx Hypertension: No Hx Congestive Heart Failure: No Hx Diabetes: No Hx Deep Vein Thrombosis: No Hx Renal Disease: No Hx Sickle Cell Disease: No Hx Seizures: No Hx Asthma: No Hx COPD: No Hx HIV: No - Social History Smoking Status: Never Smoker - Medications Home Medications: Home Medications Medication Instructions Recorded Confirmed Last Taken Type Vit-Fe Fumar-FA [ 1 tab PO QDAY 10/01/15 04/02/19 03/31/19 History Vitamin] NIFEdipine [Procardia] 1 tab PO DAILY 04/02/19 04/02/19 04/01/19 History ED Physical Exam - General Limitations: No Limitations - Other Other exam information: GENERAL: The patient is well-developed well-nourished. HENT: Normocephalic. Atraumatic. Patient has moist mucous membranes. EYES: Extraocular motions are intact. Pupils equal reactive to light bilaterally. NECK: Supple. Trachea is midline. CHEST/LUNGS: Clear to auscultation. There is no respiratory distress noted. HEART/CARDIOVASCULAR: Regular. There is no tachycardia. There is no murmur. ABDOMEN: Abdomen is soft, nontender. Patient has normal bowel sounds. Gravid uterus is palpable in the upper abdomen. SKIN: Skin is warm and dry. NEURO: The patient is awake, alert, and oriented. The patient is cooperative. The patient has no focal neurologic deficits. The patient has normal speech. MUSCULOSKELETAL: There is no tenderness or deformity. There is no evidence of acute injury. ED Course Vital Signs 05/07/19 05/07/19 05/07/19 14:16 17:12 17:13 Temperature 98.8 F Pulse Rate 63 20 L 70 Respiratory 20 Rate Blood Pressure 116/62 115/64 Blood Pressure 115/64 [Left] O2 Sat by Pulse Oximetry 05/07/19 05/07/19 05/07/19 17:52 17:54 17:57 Temperature Pulse Rate 62 63 64 Respiratory Rate Blood Pressure 146/73 Blood Pressure [Left] O2 Sat by Pulse 100 100 Oximetry 05/07/19 05/07/19 05/07/19 18:02 20:31 20:45 Temperature Pulse Rate 64 82 82 Respiratory 20 20 Rate Blood Pressure 111/67 111/67 Blood Pressure [Left] O2 Sat by Pulse 100 99 100 Oximetry 05/07/19 05/07/19 05/07/19 21:45 22:00 22:15 Temperature Pulse Rate 76 71 78 Respiratory 20 18 22 Rate Blood Pressure 111/67 110/64 110/64 Blood Pressure [Left] O2 Sat by Pulse 100 100 100 Oximetry 05/07/19 05/07/19 05/07/19 22:31 22:45 23:01 Temperature Pulse Rate 84 85 76 Respiratory 24 16 23 Rate Blood Pressure 110/64 110/64 110/64 Blood Pressure [Left] O2 Sat by Pulse 100 100 100 Oximetry - Reevaluation(s) Reevaluation #1: 05/08/19 00:58 Wells' Criteria for Pulmonary Embolism RESULT SUMMARY: 0.0 points Low risk group: 1.3% chance of PE in an ED population. Another study assigned scores ? 4 as PE Unlikely and had a 3% incidence of PE. INPUTS: Clinical signs and symptoms of DVT > 0 = No PE is #1 diagnosis OR equally likely > 0 = No Heart rate > 100 > 0 = No Immobilization at least 3 days OR surgery in the previous 4 weeks > 0 = No Previous, objectively diagnosed PE or DVT > 0 = No Hemoptysis > 0 = No Malignancy w/ treatment within 6 months or palliative > 0 = No PERC Rule for Pulmonary Embolism RESULT SUMMARY: 0 criteria No need for further workup, as <2% chance of PE. If no criteria are positive and clinicians pre-test probability is <15%, PERC Rule criteria are satisfied. INPUTS: Age ?50 > 0 = No HR ?100 > 0 = No Brinda? on room air > 0 = No Unilateral leg swelling > 0 = No Hemoptysis > 0 = No Recent surgery or trauma > 0 = No Prior PE or DVT > 0 = No Hormone use > 0 = No GABRIEL score - Gabriel Score Age > 65: (0) No Aspirin use within the Past 7 Days: (0) No 3 or more CAD Risk Factors: (0) No 2 or more Angina events in past 24 hrs: (1) Yes (If pain is angina) Known CAD with more than 50% Stenosis: (0) No Elevated Cardiac Markers: (0) No ST Deviation Greater than 0.5mm: (0) No GABRIEL Score: 1 ED Medical Decision Making - Lab Data Result diagrams: 05/07/19 21:45 05/07/19 21:45 - EKG Data -: EKG Interpreted by Me EKG shows normal: sinus rhythm, axis, intervals, QRS complexes, ST-T waves Rate: normal - EKG Data When compared to previous EKG there are: previous EKG unavailable Interpretation: normal EKG - Radiology Data Radiology results: image reviewed interpreted by me: Chest x-ray does not show any acute process. There are no pleural effusions, obvious pneumonia and there is no pneumothorax. - Medical Decision Making This patient presents to the emergency department with some intermittent chest pain and shortness of breath that started after she took Stadol last night at labor and delivery for treatment of some contractions. She was first cleared by her PROJECT COORDINATOR RN, Dr. Angel, over at labor and delivery before coming to the emergency department. Her EKG is normal without ST elevation PA, ischemia or dysrhythmia. We discussed risks versus benefit of having a chest x-ray done and she agreed to do so. The abdomen was shielded. Chest x-ray does not show any pleural effusions, pneumonia, pneumothorax, focal consolidation, or any other acute process. Patient's labs are unremarkable including a negative troponin. She is very low on the Heart score criteria, GABRIEL score, Wells criteria and she is perc negative. She was reevaluated multiple times for multiple hours and says that she is feeling improved. Her vital signs were stable throughout her ED course including being afebrile, no tachycardia and no hypoxia. Patient does not appear in any respiratory or acute distress. For all these reasons, the patient appears safe for discharge home at this time. She will return to the ER with any worsening of her symptoms or any acute distress. - Differential Diagnosis costochondritis, GERD, PA, pneumonia Critical Care Time: No Critical care attestation.: If time is entered above; I have spent that time in minutes in the direct care of this critically ill patient, excluding procedure time. ED Disposition Clinical Impression: Intermittent chest pain Qualifiers: Weeks of gestation: 35 weeks Qualified Code(s): Z3A.35 - 35 weeks gestation of Disposition: - TO HOME OR SELFCARE Is pt being admited?: No Condition: Stable Instructions: Chest Pain (ED) Additional Instructions: Please follow-up with your PROJECT COORDINATOR RN within 1 week and follow any instructions were given by your PROJECT COORDINATOR RN while you were in labor and delivery. Return to the emergency department with any return of your chest pain, worsening of your symptoms, or with any acute distress. Referrals: MATT ANGEL MD [Primary Care Provider] - 7 Days Forms: [facility] Discharge Summary Time of Disposition: 22:56 Print Language: ZAMBIAN
[2019-05-07 22:22] LABS: BUN/Creatinine Ratio 13; Blood Urea Nitrogen 8 mg/dL (7-17); Calcium 8.8 mg/dL (8.4-10.2); Hemolysis Index 41
--- NOTE | 2019-05-07 22:42 | XRay Report ---
PROCEDURE: XR CHEST 1V AP TECHNIQUE: Chest radiograph single view. HISTORY: Chest pain COMPARISONS: None . FINDINGS: Heart: Normal. Mediastinum/Vessels: Normal. Lungs/Pleural space: No infiltrate, effusion, or pneumothorax. Bony thorax: No acute osseous abnormality. Life support devices: None. IMPRESSION: No radiographic evidence of acute cardiopulmonary abnormality. This document is electronically signed by Marivel De La O MD., May 07 2019 10:40:38 PM ET
[2019-05-07 23:11] VITALS: BP 110/64
== END 2019-05-07 23:17 | disposition home or self-care (01) ==
LOC: ED 13:27 → TRG 13:27 → EDSTATUS 18:12 → ED 23:17
DX: O26.893 Other specified pregnancy related conditions, third trimester (principal); R07.89 Other chest pain; Z3A.35 35 weeks gestation of pregnancy; Z88.8 Allergy status to other drugs, medicaments and biological substances; Z79.899 Other long term (current) drug therapy
CPT/HCPCS: 36415; 59025; 71045; 80048; 80307; 81001; 84443; 84484; 85025; 93005; 93010; 96360; 96361; 96374; 99283; J0595; J7120

== ENCOUNTER 2019-05-20 21:50 | Outpatient (CLI) | payer MEDICAID ==
[2019-05-21 00:37] VITALS: BP 139/62
== END 2019-05-21 00:50 | disposition home or self-care (01) ==
LOC: TRG 21:50
PROVIDERS: ATTEND Obstetrics & Gynecology
DX: O62.8 Other abnormalities of forces of labor (principal); O13.3 Gestational [pregnancy-induced] hypertension without significant proteinuria, third trimester; Z3A.38 38 weeks gestation of pregnancy
CPT/HCPCS: 59025

== ENCOUNTER 2019-05-21 22:33 | Outpatient (CLI) | payer MEDICAID ==
[2019-05-22 00:09] VITALS: BP 116/65
== END 2019-05-22 01:00 | disposition home or self-care (01) ==
LOC: TRG 22:33
PROVIDERS: ATTEND Obstetrics & Gynecology
DX: O62.8 Other abnormalities of forces of labor (principal); O26.853 Spotting complicating pregnancy, third trimester; Z3A.37 37 weeks gestation of pregnancy
CPT/HCPCS: 59025

== ENCOUNTER 2019-05-29 17:50 | Inpatient (IN) | payer MEDICAID ==
[2019-05-29] MEDS ORDERED: MINERAL OIL PO PRN (18:53)
[2019-05-29] MEDS ORDERED: ZOFRAN IV PRN (18:53)
[2019-05-29] MEDS ORDERED: SUBLIMAZE IV PRN (18:53)
[2019-05-29] MEDS ORDERED: XYLOCAINE 2% INFILTRATI ONE (18:53)
[2019-05-29] MEDS ORDERED: BRETHINE SUB-Q PRN (18:53)
[2019-05-29] MEDS ORDERED: BRETHINE IVP PRN (18:53)
[2019-05-29] MEDS ORDERED: PITOCin/NS 30 UNIT/500ML 30 UNITS/500 ML BAG IV SCH ×2 (19:00)
[2019-05-29] MEDS ORDERED: PITOCin/NS 20 UNIT/1000ML DRIP 20 UNITS/1,000 ML BAG IV SCH (19:00)
[2019-05-29] MEDS ORDERED: LACTATED RINGERS 1,000 ML IV SCH (19:00)
--- NOTE | 2019-05-29 19:02 | History and Physical Report ---
History of Present Illness Date of examination: 05/29/19 Date of admission: 05/29/19 17:50 Chief complaint: SROM clear fluid @ 1300 History of present illness: Pt is a 28yo BF EDC 06/12/19; EGA 38 0/7 weeks presents to L&D complaining of SROM clear fluid @ 1300 followed by irregular contractions. She received care at [facility] since 7 weeks and course has been unremarkable. records are available and GBS is negative. Past History Past Medical History: no pertinent history Past Surgical History: no surgical history Family/Genetic History: diabetes, hypertension Social history: no significant social history, single - Obstetrical History Expected Date of Delivery: 06/12/19 Actual Gestation: 38 Week(s) 1 Day(s) : 4 Medications and Allergies Allergies Allergy/AdvReac Type Severity Reaction Status Date / Time butorphanol [From Stadol] Allergy Shortness Verified 05/07/19 21:09 of Breath Home Medications Medication Instructions Recorded Confirmed Last Taken Type Vit-Fe Fumar-FA [ 1 tab PO QDAY 10/01/15 04/02/19 03/31/19 History Vitamin] NIFEdipine [Procardia] 1 tab PO DAILY 04/02/19 04/02/19 04/01/19 History Active Meds: Active Medications Ephedrine Sulfate (Ephedrine Sulfate) 10 mg IV Q2M PRN PRN Reason: Hypotension Fentanyl (Sublimaze) 100 mcg IV Q2H PRN PRN Reason: Labor Pain Oxytocin/Sodium Chloride (Pitocin/Ns 20 Unit/1000ml Drip) 20 units in 1,000 mls @ 125 mls/hr IV DIRECT CRISTINA Oxytocin/Sodium Chloride (Pitocin/Ns 30 Unit/500ml) 30 units in 500 mls @ 1 mls/hr IV TITR CRISTINA; Protocol Oxytocin/Sodium Chloride (Pitocin/Ns 30 Unit/500ml) 30 units in 500 mls @ 4 mls/hr IV TITR CRISTINA; Protocol Lactated Ringer's (Lactated Ringers) 1,000 mls @ 125 mls/hr IV DIRECT CRISTINA Lidocaine (Xylocaine 2%) 20 ml INFILTRATI ONCE ONE Stop: 05/29/19 18:54 Mineral Oil (Mineral Oil) 30 ml PO QHS PRN PRN Reason: Constipation Ondansetron HCl (Zofran) 4 mg IV Q8H PRN PRN Reason: Nausea And Vomiting Terbutaline Sulfate (Brethine) 0.25 mg SUB-Q ONCE PRN PRN Reason: Hyperstimulation/Hypertonicity Terbutaline Sulfate (Brethine) 0.25 mg IVP ONCE PRN PRN Reason: Hyperstimulation/Hypertonicity Review of Systems All systems: negative - Vital Signs Vital signs: Vital Signs Pulse BP 104 H 130/69 05/29/19 17:59 05/29/19 17:59 Temp Pulse Resp BP Pulse Ox 104 H 130/69 05/29/19 17:59 05/29/19 17:59 - Physical Exam Breasts: Positive: deferred Cardiovascular: Regular rate Lungs: Positive: Clear to auscultation Abdomen: Positive: normal appearance Genitourinary (Female): Positive: normal external genitalia Vagina: Positive: normal moisture Uterus: Positive: enlarged Extremities: Positive: normal - Obstetrical FHR: category 1 Uterine Contraction Monitor Mode: External Cervical Dilatation: 3.5 (per nurse) Cervical Effacement Percentage: 50 (per nurse) station: -4 Uterine Contraction Pattern: Irregular Uterine Tone Measurement Phase: Contraction Uterine Contraction Intensity: Mild Results Result Diagrams: 05/29/19 18:54 All other labs normal. Assessment and Plan - Patient Problems (1) 38 weeks gestation of Onset Date: 05/29/19 Current Visit: Yes Status: Acute Plan to address problem: A: IUP @ 38 0/7 weeks PPROM P: Admit to L&D for expectant vaginal delivery (2) premature rupture of membranes (PPROM) with onset of labor within 24 hours of rupture in third trimester, antepartum Onset Date: 05/29/19 Current Visit: Yes Status: Acute
[2019-05-29 19:18] LABS: Hematocrit 31.7 % (30.3-42.9); Hemoglobin 10.8 gm/dl (10.1-14.3); Mean Corpuscular HGB Conc 34 % (30-34); Mean Corpuscular Volume 90 fl (79-97); Platelet Count 146 K/mm3 (140-440); Red Blood Count 3.53 M/mm3 (3.65-5.03); Red Cell Distribution Width 14.8 % (13.2-15.2)
[2019-05-29] MEDS ORDERED: NARCAN 2 MG/2 ML IV PRN (22:59)
[2019-05-29] MEDS ORDERED: fentaNYL-BUPIV 2 MCG/ML-0.125% 200 MCG/100 ML BAG EPIDURAL SCH (23:00)
--- NOTE | 2019-05-29 23:01 | Anesthesia Consultation ---
Anesthesia Consult and Med Hx Date of service: 05/29/19 - Airway Anesthetic Teeth Evaluation: Good ROM Head & Neck: Adequate Mental/Hyoid Distance: Adequate Mallampati Class: Class II Intubation Access Assessment: Probably Good - Pulmonary Exam CTA: Yes - Cardiac Exam Cardiac Exam: RRR - Pre-Operative Health Status ASA Pre-Surgery Classification: ASA2 Proposed Anesthetic Plan: Epidural - Pulmonary Hx Smoking: No Hx Asthma: No Hx Respiratory Symptoms: No SOB: No COPD: No Home Oxygen Therapy: No Hx Pneumonia: No Hx Sleep Apnea: No - Cardiovascular System Hx Hypertension: No Hx Coronary Artery Disease: No Hx Heart Attack/AMI: No Hx Angina: No Hx Percutaneous Transluminal Coronary Angioplasty (PTCA): No Hx Cardia Arrhythmia: No Hx Pacemaker: No Hx Internal Defibrillator: No Hx Valvular Heart Disease: No Hx Heart Murmur: No - Central Nervous System Hx Neuromuscular Disorder: No Hx Seizures: No CVA: No Hx Back Pain: Yes Hx Psychiatric Problems: No - Gastrointestinal Hx Ulcer: No Hx Gastroesophageal Reflux Disease: Yes - Endocrine Hx Renal Disease: No Hx End Stage Renal Disease: No Hx Cirrhosis: No Hx Liver Disease: No Hx Insulin Dependent Diabetes: No Hx Non-Insulin Dependent Diabetes: No Hx Thyroid Disease: No Hx Hypothyroidism: No Hx Hyperthyroidism: No - Hematic Hx Anemia: No Hx Sickle Cell Disease: No - Other Systems Hx Alcohol Use: Yes Hx Substance Use: No Hx Cancer: No Hx Obesity: No
[2019-05-30] MEDS ORDERED: DULCOLAX PR PRN (03:51)
[2019-05-30] MEDS ORDERED: LANSINOH TP PRN (03:51)
[2019-05-30] MEDS ORDERED: TUCKS PAD TP PRN (03:51)
[2019-05-30] MEDS ORDERED: PHENERGAN PO PRN (03:51)
[2019-05-30] MEDS ORDERED: PHENERGAN PR PRN (03:51)
[2019-05-30] MEDS ORDERED: BENADRYL PO PRN (03:51)
[2019-05-30] MEDS ORDERED: MILK OF MAGNESIA PO PRN (03:51)
[2019-05-30] MEDS ORDERED: ZOFRAN IV PRN (03:51)
[2019-05-30] MEDS ORDERED: TYLENOL PO PRN (03:51)
[2019-05-30] MEDS ORDERED: SODIUM CHLORIDE FLUSH SYRINGE 10 ML IV NR (04:00)
[2019-05-30] MEDS ORDERED: PITOCin/NS 20 UNIT/1000ML DRIP 20 UNITS/1,000 ML BAG IV SCH (04:00)
--- NOTE | 2019-05-30 04:00 | Procedure Note ---
OB Delivery Note - Delivery Date of Delivery: 05/30/19 Surgeon: EUGENE DOBBINS Estimated blood loss: 100cc - Vaginal Delivery presentation: vertex Delivery position: OP Intrapartum events: PROM->1hr before delivery, mult.variable deceleratio Delivery induction: none Delivery augmentation: pitocin Delivery monitor: external FHT, external uterine Route of delivery: vacuum extraction (1 pull, no pop-offs) Indicators for instrumentation: nonreassuring FHR tracing Delivery placenta: spontaneous Delivery cord: 3 umbilical vessels Episiotomy: none Delivery laceration: none Anesthesia: epidural Delivery comments: delivered OP with the aid of a vacuum, 1 pull, no pop-offs, and placed on Mom's chest for [id number] bonding and delayed cord clamping, cut by Dad - Infant A at 1 minute: 8 at 5 minutes: 9 Infant Gender: Male (2337gms)
[2019-05-30] MEDS: IBUPROFEN PO SCH ×2 (07:59→16:24)
[2019-05-30] MEDS: NORCO 5/325 PO PRN ×2 (08:00→19:00)
[2019-05-30] MEDS: FEOSOL PO SCH ×2 (09:56→23:30)
[2019-05-30] MEDS: COLACE PO SCH ×2 (09:56→23:30)
[2019-05-30] MEDS: PRENATAL VITAMIN PO SCH (09:57)
[2019-05-30 17:26] LABS: Hematocrit 29.9 % (30.3-42.9); Hemoglobin 9.9 gm/dl (10.1-14.3)
[2019-05-31] MEDS: IBUPROFEN PO SCH ×4 (06:00→18:15)
[2019-05-31] MEDS ORDERED: M-M-R II VACCINE SUB-Q ONE (06:00)
[2019-05-31] MEDS ORDERED: BOOSTRIX IM ONE (06:00)
[2019-05-31] MEDS: FEOSOL PO SCH ×2 (09:28→22:00)
[2019-05-31] MEDS: COLACE PO SCH ×2 (09:28→22:00)
[2019-05-31] MEDS: PRENATAL VITAMIN PO SCH (09:29)
--- NOTE | 2019-05-31 09:35 | Progress Note ---
Assessment and Plan - Patient Problems (1) 38 weeks gestation of Onset Date: 05/29/19 Current Visit: Yes Status: Resolved (2) premature rupture of membranes (PPROM) with onset of labor within 24 hours of rupture in third trimester, antepartum Onset Date: 05/29/19 Current Visit: Yes Status: Resolved (3) (normal spontaneous vaginal delivery) Onset Date: 05/31/19 Current Visit: No Status: Resolved Plan to address problem: A: S/P - PPD #1 Doing well Asymptomatic anemia - stable P: May go home tomorrow. Subjective - Subjective Date of service: 05/31/19 Principal diagnosis: s/p - PPD #1 Interval history: Pt is feeling well without complaints. Bleeding improved. Patient reports: appetite normal, voiding normally, flatus, ambulating normally, no dizzy ambulation, no nauseated : doing well, nursing well, bottle feeding Objective - Vital Signs Latest vital signs: Vital Signs Temp Pulse Resp BP BP Pulse Ox 05/31/19 08:25 98.2 F 71 20 120/64 05/31/19 06:00 18 05/30/19 20:48 98.6 F 18 119/61 05/30/19 15:14 97.7 F 74 20 113/66 100 05/30/19 11:32 98.0 F 74 20 107/59 97 Intake and Output 05/30/19 05/31/19 05/31/19 22:59 06:59 14:59 Intake Total 600 120 360 Balance 600 120 360 Intake: Oral 240 120 360 Intake, Free Water 360 Other: Total, Intake Amount 240 120 360 # Voids Void 1 1 1 - Exam Breasts: Present: deferred Abdomen: Present: normal appearance, soft Uterus: Present: normal, firm, fundal height below umbilicus Extremities: Present: normal - Labs Labs: Abnormal lab results 05/30/19 Range/Units 17:05 Hgb 9.9 L (10.1-14.3) gm/dl Hct 29.9 L (30.3-42.9) % Laboratory Tests 05/29/19 05/29/19 05/29/19 18:30 18:30 18:54 WBC 7.5 RBC 3.53 L Hgb 10.8 Hct 31.7 MCV 90 MCH 31 MCHC 34 RDW 14.8 Plt Count 146 RPR Nonreactive Blood Type O POSITIVE Antibody Screen Negative 05/30/19 17:05 WBC RBC Hgb 9.9 L Hct 29.9 L MCV MCH MCHC RDW Plt Count RPR Blood Type Antibody Screen
--- NOTE | 2019-05-31 11:26 | Discharge Summary ---
Providers - Providers Date of Admission: 05/29/19 17:50 Date of discharge: 06/01/19 Attending physician: EUGENE DOBBINS Primary care physician: EUGENE DOBBINS Hospitalization Reason for admission: active labor, rupture of membranes, IUP at term Delivery: Episiotomy: none Laceration: none Other procedures: none complications: none baby: male Hospital course: Unremarkable. Condition at discharge: Good Disposition: DC-01 TO HOME OR SELFCARE - Discharge Diagnoses (1) 38 weeks gestation of Status: Resolved (2) premature rupture of membranes (PPROM) with onset of labor within 24 hours of rupture in third trimester, antepartum Status: Resolved (3) (normal spontaneous vaginal delivery) Status: Resolved Plan - Discharge Medications Prescriptions: Ferrous Sulfate [Feosol 325 MG tab] 325 mg PO BID #60 tablet Ibuprofen [Motrin 600 MG tab] 600 mg PO Q6HR #30 tablet Vit-Fe Fumar-FA [ Vitamin] 1 each PO QDAY #30 tablet - Provider Discharge Summary Activity: routine, no sex for 6 weeks, no heavy lifting 4 weeks, no strenuous exercise Diet: routine Instructions: routine Additional instructions: [] Smoking cessation referral if applicable(refer to patient education folder for contact #) [] Refer to [facility] Booklet Call your doctor immediately for: * Fever > 100.5 * Heavy vaginal bleeding ( >1 pad per hour) * Severe persistent headache * Shortness of breath * Reddened, hot, painful area to leg or breast * Drainage or odor from incision. * Keep incision clean and dry at all times and follow doctor's instructions regarding bathing/showering - Follow up plan Follow up: EUGENE DOBBINS MD [Primary Care Provider] - 6 Weeks ANNY STEVENS CNM [Advanced Practice Nurse] - 6 Weeks
[2019-06-01] MEDS: IBUPROFEN PO SCH ×3 (00:07→12:20)
[2019-06-01] MEDS: PRENATAL VITAMIN PO SCH (09:02)
[2019-06-01] MEDS: COLACE PO SCH (09:02)
[2019-06-01] MEDS: FEOSOL PO SCH (09:02)
[2019-06-01 13:38] VITALS: BP 117/71
== END 2019-06-01 14:00 | disposition home or self-care (01) | DRG 775 ==
LOC: LD 17:50 → OB 05-30 05:33
PROVIDERS: ADMIT Obstetrics & Gynecology; ATTEND Obstetrics & Gynecology
PROC: 10D07Z6 Extraction of Products of Conception, Vacuum, Via Natural or Artificial Opening (ICD-10-PCS; principal; 2019-05-30)
PROC: 3E0R3BZ Introduction of Anesthetic Agent into Spinal Canal, Percutaneous Approach (ICD-10-PCS; 2019-05-30)
PROC: 00HU33Z Insertion of Infusion Device into Spinal Canal, Percutaneous Approach (ICD-10-PCS; 2019-05-30)
PROC: 3E0234Z Introduction of Serum, Toxoid and Vaccine into Muscle, Percutaneous Approach (ICD-10-PCS; 2019-05-31)
DX: O42.02 Full-term premature rupture of membranes, onset of labor within 24 hours of rupture (principal); K21.9 Gastro-esophageal reflux disease without esophagitis; O99.62 Diseases of the digestive system complicating childbirth; O76 Abnormality in fetal heart rate and rhythm complicating labor and delivery; O90.81 Anemia of the puerperium; Z37.0 Single live birth; Z3A.38 38 weeks gestation of pregnancy; Z83.3 Family history of diabetes mellitus; Z82.49 Family history of ischemic heart disease and other diseases of the circulatory system; Z88.8 Allergy status to other drugs, medicaments and biological substances; Z23 Encounter for immunization
CPT/HCPCS: 36415; 85014; 85018; 85027; 86592; 86850; 86900; 86901; G0378; J2405; J2590; J7120

== ENCOUNTER 2022-04-17 17:09 | Outpatient (CLI) | payer MEDICAID ==
[2022-04-17] MEDS ORDERED: LACTATED RINGERS 500 ML IV ONE (17:59)
[2022-04-17 18:15] LABS: Hematocrit 29.3 % (30.3-42.9); Hemoglobin 9.8 gm/dl (10.1-14.3); Mean Corpuscular HGB Conc 33 % (30-34); Mean Corpuscular Volume 86 fl (79-97); Platelet Count 114 K/mm3 (140-440); Red Cell Distribution Width 14.3 % (13.2-15.2)
[2022-04-17 18:39] LABS: Bilirubin,Urine NEG (Negative); Blood,Urine NEG (Negative); Color,Urine Yellow (Yellow); Mucus,Urine FEW /HPF; Protein,Urine <15 mg/dL mg/dL (Negative)
[2022-04-17 18:40] LABS: Alanine Aminotransferase 11 units/L (7-56); Uric Acid 3.5 mg/dL (3.5-7.6)
[2022-04-17 20:07] VITALS: BP 130/78
[2022-04-17] MEDS ORDERED: LACTATED RINGERS 1,000 ML ONE (20:32)
--- NOTE | 2022-04-17 20:47 | Event Note ---
Date: 04/17/22 (2024) Evaluated patient for bilateral extremity swelling, mild off balance and occ. headaches with spots. Pt states has been with harp's off and on for past sev weeks, Tylenol makes better. She denies epigastric pain, RUQ pain, headache at this time and back pain. She does states she feels some of her contractions. abdomen soft to touch. cat 1 tracing. VE c/thick/OOP per RN. She does not have a hx of PEC. Discussed to stay hydrated, take start taking 81mg of ASA for prevention and to minimize her screen time. She sees her OB this upcoming We dnesday. She will keep a headache log and bp log. Her labs are norm with a low platelet still > 100. Plan to hydrate with 500ml bolus, if still with cx, terbutaline.
--- NOTE | 2022-04-18 02:37 | Event Note ---
Date: 04/18/22 (2199) Rn called informed entire liter of LR was given and resolved contractions. Instructed to educate patient on hydration, and s/s of dehydration. Patient may go home. She is to call her OBGYN office to inform of DANAY visit.
== END 2022-04-17 22:43 | disposition home or self-care (01) ==
LOC: TRG 17:09 → APU 17:09 → TRG 22:43
PROVIDERS: ATTEND Obstetrics & Gynecology
DX: O26.893 Other specified pregnancy related conditions, third trimester (principal); R42 Dizziness and giddiness; R51.9 Headache, unspecified; M79.89 Other specified soft tissue disorders; Z3A.34 34 weeks gestation of pregnancy
CPT/HCPCS: 36415; 59025; 81001; 82565; 83615; 84450; 84460; 84550; 85027; J7120; 96360; 96361

== ENCOUNTER 2022-05-04 19:34 | Outpatient (CLI) | payer MEDICAID ==
[2022-05-04 20:28] VITALS: BP 133/69
--- NOTE | 2022-05-04 23:31 | Ultrasound Report ---
US OB follow up INDICATION / CLINICAL INFORMATION: [email or web address] COMPARISON: None available. TECHNIQUE: Using a transcutaneous probe, multiple grayscale, color Doppler, and spectral Doppler imag es of the uterus and fetus were captured and stored. FINDINGS: A single cephalic fetus is demonstrated with heart rate of 148 bpm. The amniotic fluid is normal in amount with amniotic fluid index of 11.0. Biparietal Diameter = 8.89 cm = 36, 0 weeks, days Head Circumference = 31.84 cm = 35, 6 weeks, days Abdominal Circumference = 31.93 cm = 35, 6 weeks, days Femur Length = 7.0. cm = 36, 0 weeks, days Average Ultrasound Age (AUA) = 36, 0 weeks, days. EDC is 06/01/2022. Clinical estimated gestational age based on LMP of 08/23/2021 and 36 weeks 2 days. Estimated weight = 2800 g; growth percentile 42%.. IMPRESSION: 1. Single living fetus as detailed. Signer Name: Pilo Schwartz II, MD Signed: 05/04/2022 11:27 PM Workstation Name: [id number]
== END 2022-05-04 22:07 | disposition home or self-care (01) ==
LOC: TRG 19:34 → OB 19:38 → APU 19:53 → TRG 22:07
PROVIDERS: ATTEND Obstetrics & Gynecology
DX: O47.03 False labor before 37 completed weeks of gestation, third trimester (principal); Z3A.36 36 weeks gestation of pregnancy
CPT/HCPCS: 76816